=== PATIENT | male | born 1990 ===

== ENCOUNTER 2017-04-30 03:56 | Emergency (ER) | payer SELFPAY ==
--- NOTE | 2017-04-30 04:27 | ED PDOC ---
Arrival/HPI - General Chief Complaint: Psychiatric Evaluation Time Seen by Provider: 04/30/17 04:02 Historian: Patient, Digital Performance Analyst (Nurse Alfaro) EM Caveat: Intoxicated - History of Present Illness Narrative History of Present Illness (Text): 04/30/17 04:22 26 year old male, with denies any past medical history or psych history, presents to the emergency department by BLS for alcohol intoxication. Patient was found sleeping in a hallway of an apartment building. Patient has been exhibiting bizarre behavior avoiding eye contact and smiling/ laughing when asked questions through a medical reception specialist. Needed to repeat questions multiple times in order to receive an answer. Patient is awake and oriented x3. He denies drinking tonight. HPI and ROS limited due to patients state of intoxication. Digital Performance Analyst: Nurse Alfaro Activities at Onset: Light Context: Other (sleeping in apartment hallway) Past Medical History - Provider Review Nursing Documentation Reviewed: Yes - Psychiatric Hx Substance Use: No (denies) Family/Social History - Physician Review Nursing Documentation Reviewed: Yes Family/Social History: No Known Family HX Smoking Status: Former Smoker Hx Alcohol Use: No (denies) Hx Substance Use: No (denies) Allergies/Home Meds Allergies/Adverse Reactions: Allergies No Known Allergies Allergy (Verified 04/30/17 04:06) Home Medications: Home Meds Medication Instructions Recorded Confirmed No Known Home Med 04/30/17 04/30/17 Review of Systems - Physician Review All systems were reviewed & negative as marked: Yes - Review of Systems Systems not reviewed;Unavailable: Uncooperative Physical Exam Vital Signs Reviewed: Yes Vital Signs Temp Pulse Resp BP Pulse Ox 04/30/17 04:06 98.1 F 98 H 20 152/95 H 100 Temperature: Afebrile Blood Pressure: Normal Pulse: Regular Respiratory Rate: Normal Appearance: Positive for: Well-Appearing, Non-Toxic, Comfortable Pain Distress: None Mental Status: Positive for: Alert and Oriented X 3 - Systems Exam Head: Present: Atraumatic, Normocephalic Pupils: Present: PERRL Extroacular Muscles: Present: EOMI Conjunctiva: Present: Normal Mouth: Present: Moist Mucous Membranes Neck: Present: Normal Range of Motion Respiratory/Chest: Present: Clear to Auscultation, Good Air Exchange. No: Respiratory Distress, Accessory Muscle Use Cardiovascular: Present: Regular Rate and Rhythm, Normal S1, S2. No: Murmurs Abdomen: Present: Normal Bowel Sounds. No: Tenderness, Distention, Peritoneal Signs Back: Present: Normal Inspection Upper Extremity: Present: Normal Inspection. No: Cyanosis, Edema Lower Extremity: Present: Normal Inspection. No: Edema Neurological: Present: GCS=15, CN II-XII Intact, Speech Normal Skin: Present: Warm, Dry, Normal Color. No: Rashes Psychiatric: Present: Alert, Oriented x 3, Normal Insight, Normal Concentration Medical Decision Making ED Course and Treatment: 04/30/17 04:22 Impression: 26 year old male presents for alcohol intoxication. Patient exhibits bizarre behavior. Plan: -- Labs -- EKG -- Chest X-ray -- Reassess and disposition Progress Notes: 04/30/17 05:56 Patient has been evaluated by ALEIDA Bob. States patient shows signs of psychosis and requires screening by [facility] [place] - Lab Interpretations Lab Results: 04/30/17 04:25 04/30/17 04:25 Lab Results 04/30/17 04:35: Urine Opiates Screen Negative, Urine Methadone Screen Negative, Ur Barbiturates Screen Negative, Ur Phencyclidine Scrn Negative, Ur Amphetamines Screen Negative, U Benzodiazepines Scrn Negative, U Oth Cocaine Metabols Negative, U Cannabinoids Screen Negative 04/30/17 04:25: Alcohol, Quantitative < 10 04/30/17 04:25: Sodium 140, Potassium 3.8, Chloride 103, Carbon Dioxide 27, Anion Gap 15, BUN 21, Creatinine 0.9, Est GFR ( Amer) > 60, Est GFR (Non- Af Amer) > 60, Random Glucose 99, Calcium 9.4, Total Bilirubin 0.6, AST 36, ALT 34, Alkaline Phosphatase 90, Total Protein 7.4, Albumin 4.3, Globulin 3.0, Albumin/Globulin Ratio 1.4 04/30/17 04:25: WBC 11.7 H, RBC 5.16, Hgb 14.7, Hct 44.4, MCV 86.0, MCH 28.5, MCHC 33.1, RDW 13.4, Plt Count 303, MPV 10.1, Gran % 64.5, Lymph % (Auto) 24.1, [place] % (Auto) 7.0 H, Eos % (Auto) 3.2, Baso % (Auto) 1.2, Gran # 7.54 H, Lymph # 2.8, [place] # 0.8 H, Eos # 0.4, Baso # 0.14 I have reviewed the lab results: Yes - RAD Interpretation Radiology Orders: 04/30/17 05:45 CHEST PORTABLE [RAD] Stat - Transfer of Care Patient signed out to Dr:: Mehnaz Other: [place] [facility] [place]assessment/disposition - Scribe Statement The provider has reviewed the documentation as recorded by the Scribe Terence Charles Provider Scribe Attestation: All medical record entries made by the Scribe were at my direction and personally dictated by me. I have reviewed the chart and agree that the record accurately reflects my personal performance of the history, physical exam, medical decision making, and the department course for this patient. I have also personally directed, reviewed, and agree with the discharge instructions and disposition. Disposition/Present on Arrival - Present on Arrival Any Indicators Present on Arrival: No History of DVT/PE: No History of Uncontrolled Diabetes: No Urinary Catheter: No History of Decub. Ulcer: No History Surgical Site Infection Following: None - Disposition Have Diagnosis and Disposition been Completed?: No Diagnosis: Psychosis Disposition Time: 07:00 Condition: STABLE Forms: [employer] ([place] Leonean)
[2017-04-30 04:38] LABS: BASO # 0.14 K/mm3 (0.0-2.0); BASO % 1.2 % (0.0-3.0); EOS # 0.4 (0.0-0.7); EOS % 3.2 % (1.5-5.0); GRAN # 7.54 (1.4-6.5); GRAN % 64.5 % (50.0-68.0); HEMOGLOBIN 14.7 g/dL (14.0-18.0); LYMPH # 2.8 (1.2-3.4); LYMPH % 24.1 % (22.0-35.0); MEAN CORPUSCULAR HEMOGLOBIN 28.5 pg (25.0-35.0); MEAN CORPUSCULAR HGB CONC 33.1 g/dl (31.0-37.0); MEAN PLATELET VOLUME 10.1 fl (7.0-11.0); MONO # 0.8 (0.1-0.6); RBC 5.16 10^6/uL (3.5-6.1); RED CELL DISTRIBUTION WIDTH 13.4 % (11.5-14.5); WHITE BLOOD COUNT 11.7 10^3/ul (4.5-11.0)
[2017-04-30 04:57] LABS: ALB/GLOB RATIO 1.4 (1.1-1.8); ALBUMIN 4.3 g/dL (3.0-4.8); ALT/SGPT 34 U/L (7-56); AST/SGOT 36 U/L (17-59); BLOOD UREA NITROGEN 21 mg/dL (7-21); CALCIUM 9.4 mg/dL (8.4-10.5); GFR AFRICAN-AMERICAN > 60; GFR NON-AFRICAN AMERICAN > 60
[2017-04-30 05:08] LABS: BARBITURATES, UR NEGATIVE (NEGATIVE); BENZODIAZEPINES, UR NEGATIVE (NEGATIVE); OPIATES, UR NEGATIVE (NEGATIVE); PHENCYCLIDINE, UR NEGATIVE (NEGATIVE)
[2017-04-30 06:47] LABS: ACETAMINOPHEN < 10.0 ug/ml (10.0-20.0); SALICYLATE < 1 mg/dL (2.0-20.0)
--- NOTE | 2017-04-30 07:31 | ED PDOC ---
Physical Exam Vital Signs Reviewed: Yes Vital Signs Temp Pulse Resp BP Pulse Ox 04/30/17 18:11 98 F 84 16 128/78 98 04/30/17 17:19 74 19 134/81 98 04/30/17 13:22 98 F 90 18 137/80 99 04/30/17 11:05 91 H 18 141/48 L 99 04/30/17 09:42 87 18 143/83 100 04/30/17 06:55 95 H 16 129/90 100 04/30/17 04:06 98.1 F 98 H 20 152/95 H 100 Temperature: Afebrile Blood Pressure: Hypertensive Pulse: Tachycardic Respiratory Rate: Normal Appearance: Positive for: Well-Appearing, Non-Toxic, Comfortable Pain Distress: None Mental Status: Positive for: Alert and Oriented X 3 Medical Decision Making ED Course and Treatment: 04/30/17 07:29: Patient endorsed to me by Dr. Esqueda. The patient is medically cleared, pending [facility]. 04/30/17 18:33 Patient stable with no complaints. He was evaluated by Dr. Ward and PES during his stay. He just received a bed and will be transferred. - Lab Interpretations Lab Results: 04/30/17 04:25 04/30/17 04:25 Lab Results 04/30/17 05:00: Urine Color Yellow, Urine Appearance Clear, Urine pH 6.0, Ur Specific [place] 1.025, Urine Protein Trace H, Urine Glucose (UA) Negative, Urine Ketones Negative, Urine Blood Negative, Urine Nitrate Negative, Urine Bilirubin Negative, Urine Urobilinogen 0.2, Ur Leukocyte Esterase Negative, Urine RBC Negative, Urine WBC 0 - 2, Ur Epithelial Cells None, Amorphous Sediment Few, Urine Bacteria Many 04/30/17 04:35: Urine Opiates Screen Negative, Urine Methadone Screen Negative, Ur Barbiturates Screen Negative, Ur Phencyclidine Scrn Negative, Ur Amphetamines Screen Negative, U Benzodiazepines Scrn Negative, U Oth Cocaine Metabols Negative, U Cannabinoids Screen Negative 04/30/17 04:25: Alcohol, Quantitative < 10 04/30/17 04:25: Salicylates < 1 L, Acetaminophen < 10.0 L 04/30/17 04:25: Sodium 140, Potassium 3.8, Chloride 103, Carbon Dioxide 27, Anion Gap 15, BUN 21, Creatinine 0.9, Est GFR ( Amer) > 60, Est GFR (Non- Af Amer) > 60, Random Glucose 99, Calcium 9.4, Total Bilirubin 0.6, AST 36, ALT 34, Alkaline Phosphatase 90, Total Protein 7.4, Albumin 4.3, Globulin 3.0, Albumin/Globulin Ratio 1.4 04/30/17 04:25: WBC 11.7 H, RBC 5.16, Hgb 14.7, Hct 44.4, MCV 86.0, MCH 28.5, MCHC 33.1, RDW 13.4, Plt Count 303, MPV 10.1, Gran % 64.5, Lymph % (Auto) 24.1, [place] % (Auto) 7.0 H, Eos % (Auto) 3.2, Baso % (Auto) 1.2, Gran # 7.54 H, Lymph # 2.8, [place] # 0.8 H, Eos # 0.4, Baso # 0.14 - RAD Interpretation Radiology Orders: 04/30/17 05:45 CHEST PORTABLE [RAD] Stat - Scribe Statement The provider has reviewed the documentation as recorded by the Scribe Corie Pike All medical record entries made by the Scribe were at my direction and personally dictated by me. I have reviewed the chart and agree that the record accurately reflects my personal performance of the history, physical exam, medical decision making, and the department course for this patient. I have also personally directed, reviewed, and agree with the discharge instructions and disposition. Disposition/Present on Arrival - Present on Arrival Any Indicators Present on Arrival: No History of DVT/PE: No History of Uncontrolled Diabetes: No Urinary Catheter: No History of Decub. Ulcer: No History Surgical Site Infection Following: None - Disposition Have Diagnosis and Disposition been Completed?: Yes Diagnosis: Psychosis Disposition Time: 18:35 Patient Plan: Admission Patient Problems: Current Active Problems Problem Status Onset Psychosis Acute Condition: STABLE Forms: [employer] ([place]ican)
[2017-04-30 10:24] LABS: URINE BILIRUBIN NEGATIVE (NEGATIVE); URINE BLOOD NEGATIVE (NEGATIVE); URINE GLUCOSE (UA) NEGATIVE (NEGATIVE); URINE LEUKOCYTE ESTERASE NEGATIVE Leu/uL (NEGATIVE); URINE NITRATE NEGATIVE (NEGATIVE); URINE PROTEIN TRACE mg/dL (<30 mg/dL); URINE UROBILINOGEN 0.2 E.U./dL (<1 E.U./dL)
[2017-04-30 10:33] LABS: URINE APPEARANCE CLEAR (CLEAR); URINE COLOR YELLOW (YELLOW)
[2017-04-30 10:39] LABS: URINE AMORPHOUS SEDIMENT FEW; URINE BACTERIA MANY (NEG); URINE RBC NEGATIVE /hpf (0-2); URINE WBC 0 - 2 /hpf (0-6)
--- NOTE | 2017-04-30 12:13 | RAD ---
HISTORY: medical clearance COMPARISON: No prior. FINDINGS: LUNGS: No active pulmonary disease. PLEURA: No significant pleural effusion identified, no pneumothorax apparent. CARDIOVASCULAR: Normal. OSSEOUS STRUCTURES: No significant abnormalities. VISUALIZED UPPER ABDOMEN: Normal. OTHER FINDINGS: None. IMPRESSION: No active disease.
[2017-04-30 13:25] VITALS: TEMP 98
--- NOTE | 2017-04-30 17:07 | CARD ---
APPROVED REPORT EKG Measurement Heart [id number] <Conclusion> Normal sinus rhythm Indeterminate axis Borderline ECG
[2017-04-30 17:20] VITALS: O2SAT 98
[2017-04-30 18:12] VITALS: BP 128/78; PULSE 84; RESP 16
== END 2017-04-30 19:15 | disposition short-term general hospital (02) ==
LOC: ED 03:56
DX: F29 Unspecified psychosis not due to a substance or known physiological condition (principal)
CPT/HCPCS: 71010; 80053; 81001; 85025; 90791; 93005; 99285; G0480